=== PATIENT | male | born 1930 | race Caucasian/White ===

== ENCOUNTER → 2017-10-23 | Outpatient (CLI) | payer MEDICARE, OTHER ==
--- NOTE | 2017-10-23 22:16 | PCVCIMAG ---
EXAM: BILATERAL LOWER EXTREMITY ARTERIAL DUPLEX INDICATION: Peripheral Arterial Disease. Leg pain. Right heel ulcer. Previous left heel ulcer. FINDINGS: Right Leg: Satisfactory arterial waveforms in the common femoral and profunda femoral artery and throughout the superficial femoral artery without significant stenosis. Increased systolic velocity 206 cm/s mid popliteal artery consistent with 50% stenosis not felt to be critically flow-limiting. The anterior tibial, peroneal, posterior tibial arteries are patent. Left Leg: Satisfactory arterial waveforms throughout the common/profunda/superficial femoral, popliteal, anterior tibial, peroneal, and posterior tibial arteries. No flow limiting stenosis seen. 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 No other flow-limiting stenosis in the right lower extremity. No flow limiting stenosis in the left lower extremity. LOC:[id number]
== END | disposition home or self-care (01) ==
LOC: PCVCIMAG 11:21
PROVIDERS: ATTEND Emergency Medicine
DX: I73.9 Peripheral vascular disease, unspecified (principal); L97.419 Non-pressure chronic ulcer of right heel and midfoot with unspecified severity; I77.1 Stricture of artery
CPT/HCPCS: 93925

== ENCOUNTER → 2018-05-26 | Outpatient (CLI) | payer MEDICARE, OTHER | END | disposition home or self-care (01) | LOC: PCVCIMAG 15:33 | DX: I73.9 Peripheral vascular disease, unspecified (principal); L97.411 Non-pressure chronic ulcer of right heel and midfoot limited to breakdown of skin | CPT/HCPCS: 93925 ==